=== PATIENT | male | born 1975 | race Caucasian/White ===

== ENCOUNTER 2020-08-29 09:36 | Emergency (ER) | payer OTHER ==
[2020-08-29 09:39] VITALS: BP 138/84; PULSE 72; TEMP 98.4; BMI 28.7
[2020-08-29] MEDS ORDERED: DIPHTH,PERTUSS(ACELL),TET 0.5 ML DISP.SYRIN IM ONE ×2 (10:07→10:22)
[2020-08-29] MEDS ORDERED: SILVER SULFADIAZINE 1% TOP CREAM 50 GM JAR TP ONE ×2 (10:07→10:08)
== END 2020-08-29 10:36 | disposition home or self-care (01) ==
LOC: JERFT 09:36
PROC: 3E0234Z Introduction of Serum, Toxoid and Vaccine into Muscle, Percutaneous Approach (ICD-10-PCS; principal; 2020-08-29)
DX: T25.222A Burn of second degree of left foot, initial encounter (principal)
CPT/HCPCS: 90715; 99284-25